=== PATIENT | male | born 1990 | race Caucasian/White ===

== ENCOUNTER 2019-10-24 19:14 | Emergency (ER) | payer MEDICAID, SELFPAY ==
[2019-10-24 20:04] VITALS: BP 145/78; PULSE 82; RESP 18; TEMP 36.2; O2SAT 94; BMI 33.2
== END 2019-10-24 21:38 ==
LOC: ER 19:33
DX: Z53.21 Procedure and treatment not carried out due to patient leaving prior to being seen by health care provider (principal)
CPT/HCPCS: 99281